=== PATIENT | male | born 1960 | race Caucasian/White ===

== ENCOUNTER → 2019-09-11 | Outpatient (CLI) | payer OTHER ==
[~2019-09-11] MED LIST: ALBU2.5V8 IH; ALPR0.254 PO; CETI10TA24 PO; CHOL3000 PO; CLOP75TA PO; CYAN500T52 PO; EMPA25TA PO; FLUT16SP NS; FOLI20CA PO; HYDR-2761 PO; INSU100C4 SQ; INSU100V13 SQ; LIPA1CAP2 PO; LOSA100T14 PO; PANT40TA77 PO
--- NOTE | 2019-09-11 13:48 | PAIN ---
DATE OF SERVICE: 09/11/2019 INITIAL CONSULTATION FOR PAIN CLINIC CHIEF COMPLAINT: Neck and left upper extremity pain. HISTORY OF PRESENT ILLNESS: This is a 58-year-old male who has a history of pain in the base of the neck and left upper extremity for many years, starting about 1989 after he had a fall at that time. The patient reports since that time, he has gradually had pain on and off over the years, had a cervical fusion in 1995 and the pain got better temporarily after that, but over the past 4-5 years, the pain has been fairly significant. The patient reports it is increased in the base of the neck and shoulder radiating to his left upper extremity, anterior shoulder, into the bicep, into the forearm with numbness and cramping in the hands. He has been dropping items with his left arm and left hand. It is worse with weightbearing, reaching over his head with his left hand. It awakens him from sleep at least twice a night. It does not affect his bowel or bladder control, but does affect his ability to walk. He is using a cane with his right hand and also has some low back pain as well. The patient reports the pain in the neck and shoulder and left lower extremity has been constant, stabbing, throbbing, shooting, tingling with numbness and pain radiating, dropping items with the left hand, aching, cramping and burning in the neck as well. The patient rates his disability from 0-10, 10 being the worst, is an 8 with family home responsibility, sexual behavior, self-care and life support activities, 9 with recreation, 10 with occupational activities and 6 with social activities. The patient has tried hydrocodone, tramadol, alprazolam, all of which do decrease the pain, but only by about 50% at the most. He is taking 2 hydrocodone a day on average now. The patient has tried physical therapy. He has had chiropractic treatment, exercise, counseling, epidural injections in his low back, all of which were helpful, but none lasted for very long after the treatment. The patient reports no loss of motor function, but significant fatigability and dropping items with the left upper extremity. No significant symptoms on the right side. The patient did have MRI scan of the cervical spine and the lumbar spine which are pending at the time of this dictation. I do have a verbal report from his referring physician showing degenerative disk disease in both these areas. PAST MEDICAL HISTORY: Significant for: 1. Diabetes, insulin dependent, adult onset. 2. Coronary artery disease. 3. Hypertension. 4. Gastroesophageal reflux. 5. Dizziness. 6. Arthritis. 7. Osteoporosis. PAST SURGICAL HISTORY: Previous surgeries include: 1. Benign pancreatic tumor resection. 2. Cervical fusion in 1995. 3. Right clavicle pinning. 4. Cholecystectomy in the past. CURRENT MEDICATIONS: Include: 1. Plavix. 2. Losartan. 3. Pantoprazole. 4. Insulin. 5. Lipase. 6. Albuterol inhaler. 7. Fluticasone. 8. Cetirizine. 9. Jardiance. 10. Folic acid. 11. Hydrocodone. 12. Vitamin D3 and B12. ALLERGIES: The patient is allergic to METFORMIN. FAMILY HISTORY: Significant for no major medical conditions or problems that he lists. SOCIAL HISTORY: The patient does not drink alcohol. Smokes about 1 pack a day. Continues to smoke, has smoked for many years. Does not use any illegal, illicit or recreational drugs. He is single, lives locally in [place], [place] and reports he is currently on medical disability. REVIEW OF SYSTEMS: The patient's review of systems is positive for those items as mentioned in history of present illness. All systems reviewed and otherwise negative. It is complete, full and well documented on the patient's chart. PHYSICAL EXAMINATION: VITAL SIGNS: The patient's blood pressure is 161/116, pulse 114, respirations 16, temperature 97.6 degrees Fahrenheit, height is 5 feet 7 inches, weighs 161 pounds. GENERAL: The patient is awake, alert, oriented, appropriate, very pleasant demeanor. HEENT: Shows normocephalic, atraumatic. The patient wears eyeglasses. Extraocular movements are intact and symmetrical. Oral cavity: Mucous membranes are moist and pink. Dentition is intact. NECK: Shows anterior throat supple without palpable lymphadenopathy noted. Swallow reflex is symmetrical. CHEST: Shows normal on inspection. Breath sounds are clear bilaterally. HEART: Shows S1, S2 clear. No murmurs auscultated. ABDOMEN: Soft, nontender, nondistended. No palpable organomegaly is noted. No rebound or guarding demonstrated. The patient has well-healed surgical scarring. BACK: The patient's back shows spine grossly in the midline. Normal-appearing cervical lordotic curvature, thoracic kyphotic curvature and lumbar lordotic curvature. Cervical paraspinous muscle shows symmetrical with inspection, on palpation shows some moderate tenderness bilaterally going diffusely without significant radiation. The patient does show good rotational motion with significant pain with left lateral rotation past 45 degrees, but it is performed fully. Right lateral rotation as well as full extension and full forward flexion without significant increase in pain noted in other planes of motion. EXTREMITIES: The patient's upper extremities show deep tendon reflexes 2+ in the biceps, triceps tendons. Motor exam is approximately 4 on a scale of 5 on the left with title 1 tutor strength, bicep and tricep flexion and 5/5 on the right. Peripheral pulses are 2+ radial. No peripheral edema is noted bilaterally. Upper extremities are warm and dry to touch, equal in color and appearance. Shoulder shrug is strong and intact without loss of strength on resistance as is abduction of the shoulders with some moderate pain with resistance on the left side, base of neck and shoulder only, but not on the right. The patient has full rotational motion of the shoulders and good abduction as well without loss of strength on resistance, but again with pain reported on the left only. SKIN: Shows warm and dry. Good turgor. No edema. No sores, rashes or bruising. IMPRESSION: 1. This is a 58-year-old male with long history of pain in the base of the neck as well as the low back and left upper extremity in a radicular pattern. 2. MRI scan of the cervical spine as noted. 3. Diabetes. 4. Coronary artery disease with anticoagulation. 5. Hypertension. 6. Arthritis. 7. Cigarette smoking. PLAN: Options were discussed with the patient including conservative medical managements, physical therapies and interventional techniques and he has done physical therapies and other chiropractic treatments and exercising modalities currently. We discussed a cervical epidural steroid injection. We will check with his rough patcher first to determine appropriateness for the patient to hold the Plavix for 7 days prior to potential cervical epidural steroid injection. The patient would like to investigate this. We will wait for clearance from his rough patcher. If deemed safe and appropriate, I will hold this and then he will return for cervical epidural steroid injection as scheduled. In the meantime, the patient will continue with stretching and strength exercises and follow up with his primary care physician regarding medications. CLARITZA SANCHEZ MD DR: MARTHA/christopher JOB#: [id number] / [id number]
== END | disposition home or self-care (01) ==
LOC: PNCL 09:49
PROVIDERS: ATTEND Anesthesiology
DX: I25.10 Atherosclerotic heart disease of native coronary artery without angina pectoris (principal); E11.9 Type 2 diabetes mellitus without complications; I10 Essential (primary) hypertension; M13.80 Other specified arthritis, unspecified site; F17.210 Nicotine dependence, cigarettes, uncomplicated; Z88.8 Allergy status to other drugs, medicaments and biological substances
CPT/HCPCS: G0463

== ENCOUNTER → 2021-04-15 | Outpatient (CLI) | payer OTHER ==
[~2021-04-15] MED LIST changes: -CETI10TA24 PO; +CETI10TA74 PO; -CYAN500T52 PO; +CYAN500T7 PO; -FOLI20CA PO; +FOLIC ACID20 MG PO
--- NOTE | 2021-04-15 09:52 | PDOC ---
Progress Note - Pain Clinic Date of Service: DOS: DATE: 04/15/21 TIME: 09:47 Diagnosis: Dx: Lumbar radiculopathy with lumbar degenerative disease Cervical radiculopathy cervical degenerative disease and cervical postlaminectomy syndrome Diabetic peripheral neuropathy History or Present Illness: HPI: 60-year-old male presents with history of pain low back bilateral lower extremities patient was seen in August 2019 for some cervical issues and was unable to return as he was not allowed to be off of his Plavix at that time. We ordered physical therapy for him at that time the patient reports he is still doing physical therapy has a therapist that comes to his house daily to help take care of him and do some therapy but has not been significantly decreasing his pain his main complaint now is low back and bilateral lower extremity pain posterior gluteus lateral thigh anterior thigh medial thigh medial lower legs posterior calves to the feet worse with walking standing changing positions and weightbearing in any form essentially. Patient is using a wheelchair which he has with him today and a walker with a seat on it to get around. Patient reports is getting worse with time he has had MRI scan showing L4-5 and L5-S1 annular bulging with annular tears and degenerative changes in the upper levels as well with significant radicular pain as well as significant diabetic peripheral neuropathy diagnosed with his primary physician. Patient was sent for recommendation to evaluate for spinal cord stimulator implant as patient is a brittle diabetic and poor candidate for epidural steroid injections as he has had these in the past but without significant improvement. Patient rates his pain now is a 10 on scale 10 is worse over the past week 9 on average 6 its least is a 9 today describes aching and tight in the low back tingling burning cramping stabbing shooting severe and unbearable in the lower extremities with a ny weightbearing. Patient is taking hydrocodone sparingly does help him sleep. Patient again is doing physical therapy simply daily with home therapist that visits him by his report. Patient reports no loss of motor function but significant fatigability of both lower extremities as well as a peripheral neuropathic pain which is very uncomfortable in both of the feet and burning sensation described as well. Patient reports no bowel or bladder incontinence. Physical Exam: VS: Blood pressure is 99/43 pulse 46 respirations 18 temperature 98.2 F height is 5 feet 7 inches weight 144 pounds PE: PHYSICAL EXAMINATION: GENERAL: The patient is awake, alert, oriented, appropriate, very pleasant in demeanor, patient accompanied by his nephew. HEENT: Shows normocephalic, atraumatic. Extraocular movements are intact and symmetrical. Oral cavity: Mucous membranes moist and pink. NECK: Shows anterior throat supple without palpable lymphadenopathy noted. Swallow reflex symmetrical. CHEST: Shows normal on inspection. Breath sounds are clear bilaterally, distant and coarse but no rales or rhonchi or wheezes. HEART: Shows S1, S2 clear. No murmurs auscultated. ABDOMEN: Soft, nontender, nondistended, obese. No palpable organomegaly is noted. No rebound or guarding demonstrated. BACK: Shows spine grossly in the midline. Normal-appearing cervical lordotic curvature. There is slightly increased thoracic kyphosis, some minor flattening of the lumbar lordotic curvature. Lumbar paraspinous muscles show symmetrical on inspection, on palpation shows some moderate tenderness diffusely throughout the upper, middle and lower distribution of the paraspinous muscles without specific trigger points, without radiation of pain. The patient has good rotational motion of the lumbar spine, both laterally as well as extension and flexion without significant difficulty. No tenderness over the spinous processes, sacrum or sacroiliac regions. EXTREMITIES: Lower extremities show deep tendon reflexes 1 in the patellar and tendo calcaneus tendons. Motor exam is 4 on a scale of 5 with right dorsiflexion, extension, quadriceps and hamstring flexion and 4/5 on the left. Peripheral pulses are 1+ posterior tibial. No peripheral edema is noted bilaterally. Lower extremities are warm and dry to touch, equal in color and appearance. SKIN: Shows warm and dry, good turgor. No edema. No sores, rashes or bruising throughout. Procedure: Procedure: Options were discussed with the patient. Patient chart reviews her current medication regimen updated current review of systems updated today as well. We will preauthorize patient for spinal cord stimulator temporary lead placement, patient is scheduled to see his psychologist in a few weeks and will have note sent with him to evaluate for spinal cord stimulator compatibility as well. Once this is evaluated, will proceed with preauthorization for spinal cord stimulator temporary leads placement in this patient with significant peripheral neuropathic pain as well as radicular pain with poor results with lumbar epidural steroid injection as well as brittle diabetes. Medication Injected: Med Injected: None Condition at Discharge: Condition at Discharge: Condition at discharge is stable. CLARITZA SANCHEZ MD Apr 15, 2021 09:52
== END | disposition home or self-care (01) ==
LOC: PNCL 08:54
PROVIDERS: ATTEND Anesthesiology
DX: M51.16 Intervertebral disc disorders with radiculopathy, lumbar region (principal); M50.10 Cervical disc disorder with radiculopathy, unspecified cervical region; M96.1 Postlaminectomy syndrome, not elsewhere classified; E11.42 Type 2 diabetes mellitus with diabetic polyneuropathy; Z79.4 Long term (current) use of insulin; Z79.899 Other long term (current) drug therapy; Z88.8 Allergy status to other drugs, medicaments and biological substances
CPT/HCPCS: 99212; G0463